=== PATIENT | male | born 1955 | race Caucasian/White ===

== ENCOUNTER 2022-05-09 12:55 | Emergency (ER) | payer OTHER, SELFPAY ==
[2022-05-09 13:06] VITALS: BP 150/79; PULSE 63; RESP 18; TEMP 36.9; O2SAT 94; BMI 21.3
[2022-05-09 16:36] VITALS: BP 150/79; PULSE 63; RESP 18; TEMP 36.9
--- NOTE | 2022-05-09 16:37 | ED.NURSE ---
Dressing applied by EDT. Pt asking for discharge paperwork. Pt informed staff is waiting for MD to decide on tetanus vaccine. Pt refuses tetanus vaccine. MD made aware. Pt leaves ED ambulatory with D/C paperwork.
--- NOTE | 2022-05-09 17:38 | ED_ITS ---
HPI - General Adult General Date Seen: 05/09/22 Chief complaint: Laceration/Wound Stated complaint: Lac middle finger left hand Time Seen by Provider: 05/09/22 15:30 Source: patient and family History of Present Illness HPI narrative: Patient is a 66-year-old male here for a laceration on his left middle finger. He says he was sitting at a TV table and he fell asleep, the table fold up and his finger got pinched in the legs. His tetanus was up-to-date as of 2012. He denies numbness or loss of function. He was unsure whether it needed stitches but he thought he should come get it checked out. He does have family here with him. No other injuries or complaints. Related Data Home Medications Medication Instructions Recorded Confirmed buprenorphine 8 mg-naloxone 2 mg film 05/09/22 sublingual film gabapentin 300 mg capsule mg 05/09/22 omeprazole 20 mg capsule,delayed mg 05/09/22 release sennosides 8.6 mg-docusate sodium PO 05/09/22 50 mg tablet (Stool Softener-Laxative) Allergies Allergy/AdvReac Type Severity Reaction Status Date / Time amoxicillin AdvReac Intermediate Abdominal Verified 05/09/22 13:15 Pain clavulanic acid AdvReac Intermediate Abdominal Verified 05/09/22 13:15 [From Augmentin] Pain PFSH PFSH Social History Smoking Status: Smoker, status unknown Exam Narrative: Exam Narrative: In general, a cooperative, conversant male. Extremities: Evaluation of the left middle finger shows an L-shaped laceration involving the pad of the finger down to the D IP joint. Bleeding is controlled. Distal sensation is intact. Intact flexion and extension at the PIP joint of the 3rd finger. Skin: Warm and dry. Otherwise intact. Neurologic: Patient is generally cooperative, perhaps mildly intoxicated. Const: Vital Signs, click to edit/add: Vital Signs - 24 hr 05/09/22 13:06 05/09/22 16:36 Temperature 98.5 F 98.5 F Pulse Rate [Right Pulse Oximeter] 63 63 Respiratory Rate 18 18 Blood Pressure [Ri ght Upper Arm] 150/79 H 150/79 H Pulse Oximetry 94 Oxygen Delivery Me thod Room Air Documenting provider has reviewed patient's vital signs: yes Course Course Hospital Course: Procedure note: Wound was anesthetized using lidocaine with epinephrine, joellen kristin and explored. No evidence of foreign body. No evidence of deeper tendon injury. I closed the laceration using 5 0 nylon, a total of 8 simple interrupted superficial sutures were placed. Total wound length is 2 cm. Patient tolerated this well, no immediate complication. A dressing is applied by the technical supervisor. He declines an updated tetanus. As mentioned, I do think there may be some int oxicant on board, but he has family member with him and I think is clinically sober enough that he can reasonably be discharged. Recommend suture removal in around 10 days in clinic. Return for signs of infection. Vital Signs Vital signs: Initial Vital Signs Temperature 98.5 F 05/09/22 13:06 Temperature Source Temporal Artery Scan 05/09/22 13:06 Pulse Rate 63 05/09/22 13:06 Pulse Rhythm 05/09/22 13:06 Respiratory Rate 18 05/09/22 13:06 Blood Pressure 150/79 H 05/09/22 13:06 Blood Pressure Mean 102 05/09/22 13:06 Blood Pressure Position Sitting 05/09/22 13:06 Pulse Oximetry 94 05/09/22 13:06 Oxygen Delivery Method 05/09/22 13:06 Vital Signs Temperature 98.5 F 05/09/22 13:06 Pulse Rate 63 05/09/22 13:06 Respiratory Rate 18 05/09/22 13:06 Blood Pressure 150/79 H 05/09/22 13:06 Pulse Oximetry 94 05/09/22 13:06 Oxygen Delivery Method 05/09/22 13:06 Temperature 98.5 F 05/09/22 16:36 Pulse Rate 63 05/09/22 16:36 Respiratory Rate 18 05/09/22 16:36 Blood Pressure 150/79 H 05/09/22 16:36 Pulse Oximetry 94 05/09/22 13:06 Oxygen Delivery Method 05/09/22 13:06 Discharge Plan Discharge Clinical Impression: Laceration of finger Patient Disposition: Home, Self-Care Condition: Improved Instructions: Finger Laceration (ED) Additional Instructions: Routine wound care. Suture removal in clinic in about 10 days. Return for signs of infection. Prescriptions: No Action sennosides-docusate sodium [Stool Softener-Laxative] 8.6-50 mg tablet PO Label Comments: Take 1 to 2 tablets by mouth At Bedtime gabapentin 300 mg capsule Label Comments: Take 4 capsules by mouth 3 times daily omeprazole 20 mg capsule,delayed release(DR/EC) Label Comments: TAKE ONE CAPSULE VIA G-TUBE TWICE DAILY BEFORE MEALS buprenorphine-naloxone 8-2 mg film Label Comments: Place 0.5 Film under the tongue 4 times daily Follow Up/Referrals: Dameon Luu MD [Primary Care Provider] - Stand Alone Forms: [employer]th Info Instructions
== END 2022-05-09 16:40 | disposition home or self-care (01) ==
PROVIDERS: Emergency Provider Emergency Medicine; PCP Family Medicine
DX: S61.213A Laceration without foreign body of left middle finger without damage to nail, initial encounter (principal); W23.0XXA Caught, crushed, jammed, or pinched between moving objects, initial encounter
CPT/HCPCS: 12001; 99283

== ENCOUNTER 2022-06-25 09:31 | Emergency (ER) | payer MEDICAID, SELFPAY ==
[2022-06-25 09:37] VITALS: BP 143/91; PULSE 81; RESP 14; TEMP 36.8; O2SAT 95; BMI 19.7
--- NOTE | 2022-06-25 09:54 | ED.GENADULT ---
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 The G-tube came out during the night. That is not happen before apparently has had since about October of this year. He had a placed last here at [facility] by family's report. Patient is in no distress, no bleeding, the balloon still seems to work on the G-tube. Procedure: Attempted lubricate the G-tube in place it back in place the balloon was confirmed to be active and intact, the both I could pass a Q-tip into the lumen of the stomach but I could not pass the G-tube. Will consult with surgery Related Data Home Medications Medication Instructions Recorded Confirmed buprenorphine 8 mg-naloxone 2 mg film 05/09/22 sublingual film gabapentin 300 mg capsule mg 05/09/22 omeprazole 20 mg capsule,delayed mg 05/09/22 release sennosides 8.6 mg-docusate sodium PO 05/09/22 50 mg tablet (Stool Softener-Laxative) Allergies Allergy/AdvReac Type Severity Reaction Status Date / Time amoxicillin AdvReac Intermediate Abdominal Verified 05/09/22 13:15 Pain clavulanic acid AdvReac Intermediate Abdominal Verified 05/09/22 13:15 [From Augmentin] Pain Review of Systems Narrative: No recent illness, no history of problems with the G-tube [facility] Social History Smoking Status: Smoker, status unknown Exam Narrative: Exam Narrative: Stomach opening shows no cellulitic change, was able to pass it with a Q-tip but not the G-tube. Even with lubrication Const: Vital Signs, click to edit/add: Vital Signs - 24 hr 06/25/22 09:37 Temperature 98.3 F Pulse Rate [Right Pulse Oximeter] 81 Respiratory Rate 14 Blood Pressure [Ri ght Upper Arm] 143/91 H Pulse Oximetry 95 Oxygen Delivery Me thod Room Air Course Vital Signs Vital signs: Initial Vital Signs Temperature 98.3 F 06/25/22 09:37 Temperature Source Temporal Artery Scan 06/25/22 09:37 Pulse Rate 81 06/25/22 09:37 Respiratory Rate 14 06/25/22 09:37 Blood Pressure 143/91 H 06/25/22 09:37 Blood Pressure Mean 108 06/25/22 09:37 Blood Pressure Position Sitting 06/25/22 09:37 Pulse Oximetry 95 06/25/22 09:37 Oxygen Delivery Method 06/25/22 09:37 Vital Signs Temperature 98.3 F 06/25/22 09:37 Pulse Rate 81 06/25/22 09:37 Respiratory Rate 14 06/25/22 09:37 Blood Pressure 143/91 H 06/25/22 09:37 Pulse Oximetry 95 06/25/22 09:37 Oxygen Delivery Method 06/25/22 09:37 Temperature 98.3 F 06/25/22 09:37 Pulse Rate 81 06/25/22 09:37 Respiratory Rate 14 06/25/22 09:37 Blood Pressure 143/91 H 06/25/22 09:37 Pulse Oximetry 95 06/25/22 09:37 Oxygen Delivery Method 06/25/22 09:37 Medical Decision Making MDM Narrative Medical decision making narrative: Will consult with surgery or GI to help with the G-tube placement Addendum: Dr. Right haines was able to get a Pierre catheter in, could not get his prior G-tube in. At this point he recommended follow-up in the endoscopy clinic for PEG replacement and that will be set up. Patient and feet and uses medications through his Pierre. Addendum: Dr. Fadi cristina was able to use a new kit and introduce the G-tube without difficulty peg was replaced. Routine care, routine feeding and medication. Follow up with regular doctor as needed Discharge Plan Discharge Clinical Impression: Problem with gastrostomy tube Patient Disposition: Home w/ Parent or Adult Condition: Improved Additional Instructions: Routine PEG care, feeding and medications as normal. Follow up with regular doctor as needed. Activity Level: No Restrictions Discharge Diet: Regular Prescriptions: No Action sennosides-docusate sodium [Stool Softener-Laxative] 8.6-50 mg tablet PO Label Comments: Take 1 to 2 tablets by mouth At Bedtime gabapentin 300 mg capsule Label Comments: Take 4 capsules by mouth 3 times daily omeprazole 20 mg capsule,delayed release(DR/EC) Label Comments: TAKE ONE CAPSULE VIA G-TUBE TWICE DAILY BEFORE MEALS buprenorphine-naloxone 8-2 mg film Label Comments: Place 0.5 Film under the tongue 4 times daily Follow Up/Referrals: Dameon Luu MD [Primary Care Provider] - Stand Alone Forms: [employer] Info Instructions
[2022-06-25] MEDS: ACETAMINOPHEN 160 MG/5 ML CUP 480 MG PO (10:36)
[2022-06-25] MEDS: GABAPENTIN 300 MG CAPSULE PO (10:36)
== END 2022-06-25 10:55 | disposition home or self-care (01) ==
LOC: ED 10:26
PROVIDERS: Emergency Provider Family Medicine; PCP Family Medicine
DX: K94.20 Gastrostomy complication, unspecified (principal)
CPT/HCPCS: 99283; A9270